=== PATIENT | male | born 1955 | race Two or more races ===

== ENCOUNTER 2024-04-17 20:05 | Inpatient (IN) | payer BC, MEDICAID ==
[~2024-04-17] VITALS: Ht 172.7 cm; Wt 68.9 kg
[2024-04-17 21:51] LABS: BASOPHILS % 0.5 % (0.0-2.0); EOSINOPHILS % 0.5 % (0.0-5.0); HEMATOCRIT. 40.5 % (42.0-52.0); HEMOGLOBIN. 13.7 g/dL (14.0-18.0); LYMPHOCYTES % 24.2 % (20.0-50.0); MEAN CORPUSCULAR HEMOGLOBIN 31.4 pg (28.0-32.0); MEAN CORPUSCULAR HGB CONC 33.8 g/dL (31.0-37.0); MEAN PLATELET VOLUME 7.4 fl (7.4-10.4); MONOCYTES % 6.1 % (2.0-8.0); NEUTROPHILS % 68.7 % (40.0-76.0); PLATELET 309 x1000/uL (130-400); RED BLOOD CELL COUNT 4.35 mill/uL (4.7-6.1); RED CELL DISTRIBUTION WIDTH 15.5 % (11.6-14.6); WHITE BLOOD COUNT 8.2 x1000/uL (4.5-11.0)
[2024-04-17 21:54] LABS: CHLORIDE 109 mEq/L (98-107); POTASSIUM 3.6 mEq/L (3.5-5.1); SODIUM 141 mEq/L (136-145)
[2024-04-17 21:55] LABS: CARBON DIOXIDE 25 mEq/L (21-32)
[2024-04-17 21:56] LABS: CALCIUM 9.6 mg/dL (8.7-10.4)
[2024-04-17 22:00] LABS: GLUCOSE 110 mg/dL (70-105)
[2024-04-17 22:01] LABS: UREA NITROGEN BLOOD 17 mg/dL (9-23)
[2024-04-17 22:24] LABS: TROPONIN I HIGH SENSITIVITY 5576 ng/L (3.0-53)
[2024-04-17] MEDS ORDERED: NITROGLYCERIN 0.4MG TABLET SL SL PRN (22:45)
[2024-04-17] MEDS: MORPHINE SULFATE 4 MG/ML INJ (FOR IV/IM USE) IV STA (22:48)
[2024-04-17] MEDS: ONDANSETRON HCL 4MG/2ML INJ IV STA (22:48)
[2024-04-17] MEDS: ASPIRIN 81MG TABLET PO ONE (22:48)
[2024-04-17] MEDS: HEPARIN 60 UNITS/KG BOLUS IV SCH (23:15)
[2024-04-17] MEDS ORDERED: HEPARIN BOLUS PRN aPTT <30 IV ×2 (23:15→23:18)
[2024-04-17] MEDS ORDERED: HEPARIN BOLUS PRN aPTT 30-44 IV ×2 (23:15→23:18)
[2024-04-17 23:29] LABS: ALANINE AMINOTRANSFERASE 33 IU/L (10-49)
[2024-04-17 23:30] LABS: ALBUMIN 4.6 g/dL (3.2-4.8); ASPARTATE AMINOTRANSFERASE 91 IU/L (<34); BILIRUBIN TOTAL 0.4 mg/dL (0.1-1.0); PROTEIN TOTAL 7.3 g/dL (6.0-8.3)
[2024-04-17] MEDS: HEPARIN 25,000 UNITS PREMIX 250 ML IV ONE (23:37)
[2024-04-17] MEDS: HEPARIN 5000 UNITS/ML VIAL IV ONE (23:37)
[2024-04-17 23:44] LABS: PARTIAL THROMBOPLASTIN TIME 27.8 sec (23.4-31.0); PROTHROMBIN TIME 10.8 sec (9.6-11.0)
[2024-04-17] MEDS: HEPARIN 25,000 UNITS PREMIX 250 ML IV SCH (23:44)
[2024-04-17 23:48] LABS: BILIRUBIN DIRECT < 0.1 mg/dL (<=3.0)
[2024-04-18] MEDS ORDERED: DOCUSATE SODIUM 100MG CAPSULE PO PRN (02:30)
[2024-04-18] MEDS ORDERED: ONDANSETRON HCL 4MG/2ML INJ IV PRN ×2 (02:30→09:00)
[2024-04-18] MEDS ORDERED: ACETAMINOPHEN 325MG TABLET PO PRN (02:30)
[2024-04-18] MEDS ORDERED: CLONIDINE 0.1MG TABLET PO PRN (02:30)
[2024-04-18] MEDS ORDERED: IPRATROPIUM/ALBUTEROL 0.5-3(2.5)MG/3ML NEB HHN PRN (02:30)
[2024-04-18] MEDS ORDERED: HEPARIN 25,000 UNITS PREMIX 250 ML IV SCH (02:30)
[2024-04-18] MEDS ORDERED: GUAIFENESIN 200MG/10ML SUGAR FREE UDC PO PRN (02:30)
[2024-04-18] MEDS ORDERED: NITROGLYCERIN 0.4MG TABLET SL SL PRN (02:30)
[2024-04-18] MEDS ORDERED: MAGNESIUM/ALUMINUM HYDROXIDE/SIMETHICONE 30ML UDC PO PRN (02:30)
[2024-04-18 03:10] LABS: BASOPHILS % 0.8 % (0.0-2.0); EOSINOPHILS % 0.3 % (0.0-5.0); HEMATOCRIT. 41.6 % (42.0-52.0); HEMOGLOBIN. 13.7 g/dL (14.0-18.0); LYMPHOCYTES % 20.8 % (20.0-50.0); MEAN CORPUSCULAR HEMOGLOBIN 30.5 pg (28.0-32.0); MEAN CORPUSCULAR HGB CONC 32.9 g/dL (31.0-37.0); MEAN CORPUSCULAR VOLUME 92.7 fL (80.0-94.0); MEAN PLATELET VOLUME 7.1 fl (7.4-10.4); MONOCYTES % 5.7 % (2.0-8.0); NEUTROPHILS % 72.4 % (40.0-76.0); PLATELET 298 x1000/uL (130-400); RED BLOOD CELL COUNT 4.49 mill/uL (4.7-6.1); RED CELL DISTRIBUTION WIDTH 15.7 % (11.6-14.6); WHITE BLOOD COUNT 12.8 x1000/uL (4.5-11.0)
[2024-04-18 03:18] LABS: CHLORIDE 110 mEq/L (98-107); POTASSIUM 3.5 mEq/L (3.5-5.1)
[2024-04-18 03:19] LABS: CARBON DIOXIDE 23 mEq/L (21-32); SODIUM 140 mEq/L (136-145)
[2024-04-18 03:20] LABS: CALCIUM 9.5 mg/dL (8.7-10.4)
[2024-04-18 03:24] LABS: CREATININE 0.8 mg/dL (0.6-1.3); GLUCOSE 96 mg/dL (70-105)
[2024-04-18 03:25] LABS: LDL CHOLESTEROL 152 mg/dL (5-100); TRIGLYCERIDE 157 mg/dL (0-150); UREA NITROGEN BLOOD 12 mg/dL (9-23)
[2024-04-18 03:26] LABS: ALANINE AMINOTRANSFERASE 40 IU/L (10-49); ALBUMIN 4.6 g/dL (3.2-4.8); ASPARTATE AMINOTRANSFERASE 163 IU/L (<34); CHOLESTEROL 219 mg/dL (<200)
[2024-04-18 03:27] LABS: BILIRUBIN DIRECT 0.1 mg/dL (<=3.0); BILIRUBIN TOTAL 0.5 mg/dL (0.1-1.0); HDL CHOLESTEROL 49 mg/dL (>55); PROTEIN TOTAL 7.2 g/dL (6.0-8.3)
[2024-04-18 03:30] LABS: T4 FREE 1.15 ng/dL (0.89-1.76); THYROID STIMULATING HORMONE 2.45 uIU/mL (0.55-4.78)
[2024-04-18 03:31] LABS: TROPONIN I HIGH SENSITIVITY 19794 ng/L (3.0-53)
[2024-04-18] MEDS: ATORVASTATIN CALCIUM 40MG TABLET PO SCH (04:55)
[2024-04-18 06:49] LABS: TROPONIN I HIGH SENSITIVITY 23479 ng/L (3.0-53)
[2024-04-18] MEDS ORDERED: ASPIRIN 325MG EC TABLET PO NR (07:00)
[2024-04-18] MEDS ORDERED: LIDOCAINE HCL 1% 20ML VIAL ONE (07:18)
[2024-04-18] MEDS ORDERED: IODIXANOL 320MG/ML 100 ML BOTTLE IV ONE ×2 (07:18→08:35)
[2024-04-18] MEDS ORDERED: HEPARIN 1000 UNITS/ML 10ML ONE (07:18)
[2024-04-18] MEDS ORDERED: ASPIRIN/SOD BICARB/CITRIC ACID 324MG TAB EFF ONE (07:51)
[2024-04-18] MEDS ORDERED: FENTANYL CITRATE/PF 50MCG/ML 2ML VIAL ONE (07:59)
[2024-04-18] MEDS ORDERED: MIDAZOLAM HCL 2 MG/2 ML VIAL ONE (08:00)
[2024-04-18] MEDS ORDERED: SODIUM CHLORIDE 0.45% 1,000 ML IV ONE (08:00)
[2024-04-18] MEDS ORDERED: CLOPIDOGREL 75MG TABLET ONE (08:46)
[2024-04-18] MEDS ORDERED: ATROPINE SULFATE 1MG/10ML SYR IV PRN (09:00)
[2024-04-18 10:00] VITALS: BP 107/79; PULSE 72; RESP 18; TEMP 36.50292; O2SAT 100
[2024-04-18] MEDS: SODIUM CHLORIDE 0.45% 1,000 ML IV ONE (10:23)
[2024-04-18] MEDS: PANTOPRAZOLE SODIUM 40 MG/VIAL IV SCH (10:23)
[2024-04-18] MEDS: CLOPIDOGREL 75MG TABLET PO NR (10:23)
[2024-04-18] MEDS: ACETAMINOPHEN 325MG TABLET PO PRN ×2 (10:35→20:04)
[2024-04-18 11:19] VITALS: BP 102/75; PULSE 73; RESP 19; TEMP 36.5292
[2024-04-18 12:00] VITALS: BP 132/98; PULSE 70; RESP 13; O2SAT 100
[2024-04-18 14:22] LABS: TROPONIN I HIGH SENSITIVITY 68114 ng/L (3.0-53)
[2024-04-18 16:00] VITALS: BP 112/63; PULSE 77; RESP 15; TEMP 36.3918; O2SAT 100
[2024-04-18 19:37] VITALS: BP 116/62; PULSE 77; RESP 16; TEMP 37.28076; O2SAT 97
[2024-04-19] VITALS: BP 118/67; PULSE 79; RESP 18; TEMP 37.16964; O2SAT 100
[2024-04-19 04:00] VITALS: BP 98/52; PULSE 87; RESP 17; TEMP 37.00296; O2SAT 99
[2024-04-19 06:01] LABS: *AMPHETAMINES SCREEN URINE NEGATIVE (NEGATIVE); *BARBITURATES SCREEN URINE NEGATIVE (NEGATIVE); *BENZODIAZEPINES SCREEN URINE PRESUMPTIVE POSITIVE (NEGATIVE); *COCAINE SCREEN URINE NEGATIVE (NEGATIVE)
[2024-04-19 06:02] LABS: CANNABINOID URINE SCREEN NEGATIVE (NEGATIVE); ECSTASY MDMA SCREEN URINE NEGATIVE (NEGATIVE); METHADONE URINE SCREEN NEGATIVE (NEGATIVE); OPIATES URINE SCREEN PRESUMPTIVE POSITIVE (NEGATIVE); PHENCYCLIDINE URINE SCREEN NEGATIVE (NEGATIVE)
[2024-04-19 06:44] LABS: CARBON DIOXIDE 24 mEq/L (21-32); CHLORIDE 107 mEq/L (98-107); POTASSIUM 3.7 mEq/L (3.5-5.1); SODIUM 139 mEq/L (136-145)
[2024-04-19 06:45] LABS: CALCIUM 9.3 mg/dL (8.7-10.4)
[2024-04-19 06:49] LABS: BASOPHILS % 0.5 % (0.0-2.0); EOSINOPHILS % 0.6 % (0.0-5.0); HEMATOCRIT. 39.7 % (42.0-52.0); HEMOGLOBIN. 13.5 g/dL (14.0-18.0); MEAN CORPUSCULAR HEMOGLOBIN 31.6 pg (28.0-32.0); MEAN CORPUSCULAR VOLUME 92.9 fL (80.0-94.0); MEAN PLATELET VOLUME 7.4 fl (7.4-10.4); MONOCYTES % 6.9 % (2.0-8.0); PLATELET 288 x1000/uL (130-400); RED BLOOD CELL COUNT 4.27 mill/uL (4.7-6.1); RED CELL DISTRIBUTION WIDTH 15.5 % (11.6-14.6); WHITE BLOOD COUNT 7.7 x1000/uL (4.5-11.0)
[2024-04-19 06:50] LABS: CREATININE 0.8 mg/dL (0.6-1.3); GLUCOSE 99 mg/dL (70-105); UREA NITROGEN BLOOD 13 mg/dL (9-23)
[2024-04-19 08:00] VITALS: BP 115/67; PULSE 75; RESP 24; TEMP 37.05852; O2SAT 99
[2024-04-19 08:07] LABS: TROPONIN I HIGH SENSITIVITY 15418 ng/L (3.0-53)
[2024-04-19] MEDS: ASPIRIN 81MG TABLET PO SCH (08:28)
[2024-04-19] MEDS: CLOPIDOGREL 75MG TABLET PO SCH (08:29)
[2024-04-19] MEDS ORDERED: ASPIRIN 81MG TABLET PO SCH (09:00)
[2024-04-19 12:00] VITALS: BP 100/77; PULSE 74; RESP 22; TEMP 36.9474; O2SAT 96
[2024-04-19] MEDS ORDERED: NALOXONE HCL 0.4MG/ML VIAL IV PRN (13:15)
[2024-04-19 16:00] VITALS: BP 131/66; PULSE 69; RESP 17; TEMP 36.9474; O2SAT 96
[2024-04-19] MEDS: MORPHINE SULFATE 2 MG/ML INJ (NOT FOR IM USE) IV PRN (16:06)
[2024-04-19 20:00] VITALS: BP 135/70; PULSE 83; RESP 21; TEMP 36.89184; O2SAT 98
[2024-04-19] MEDS: ATORVASTATIN CALCIUM 40MG TABLET PO SCH (20:28)
[2024-04-20] VITALS: BP 130/65; PULSE 88; RESP 21; TEMP 36.78072; O2SAT 98
[2024-04-20 04:00] VITALS: BP 128/62; PULSE 85; RESP 20; TEMP 36.9474; O2SAT 98
[2024-04-20 06:43] LABS: BASOPHILS % 0.3 % (0.0-2.0); EOSINOPHILS % 0.7 % (0.0-5.0); HEMATOCRIT. 41.8 % (42.0-52.0); HEMOGLOBIN. 13.7 g/dL (14.0-18.0); LYMPHOCYTES % 25.8 % (20.0-50.0); MEAN CORPUSCULAR HEMOGLOBIN 30.2 pg (28.0-32.0); MEAN CORPUSCULAR HGB CONC 32.9 g/dL (31.0-37.0); MEAN PLATELET VOLUME 7.2 fl (7.4-10.4); MONOCYTES % 8.3 % (2.0-8.0); NEUTROPHILS % 64.9 % (40.0-76.0); PLATELET 331 x1000/uL (130-400); RED BLOOD CELL COUNT 4.54 mill/uL (4.7-6.1); RED CELL DISTRIBUTION WIDTH 15.5 % (11.6-14.6); WHITE BLOOD COUNT 7.5 x1000/uL (4.5-11.0)
[2024-04-20 06:54] LABS: CARBON DIOXIDE 23 mEq/L (21-32); CHLORIDE 108 mEq/L (98-107); POTASSIUM 3.6 mEq/L (3.5-5.1); SODIUM 139 mEq/L (136-145)
[2024-04-20 06:55] LABS: CALCIUM 9.6 mg/dL (8.7-10.4)
[2024-04-20 07:00] LABS: CREATININE 0.9 mg/dL (0.6-1.3); GLUCOSE 99 mg/dL (70-105); UREA NITROGEN BLOOD 15 mg/dL (9-23)
[2024-04-20 08:00] VITALS: BP 135/73; PULSE 71; RESP 18; TEMP 36.72516; O2SAT 98
[2024-04-20 08:40] LABS: TROPONIN I HIGH SENSITIVITY 10330 ng/L (3.0-53)
[2024-04-20 12:00] VITALS: BP 114/65; PULSE 65; RESP 18; TEMP 36.61404; O2SAT 97
[2024-04-20 16:00] VITALS: BP 127/74; PULSE 68; RESP 15; TEMP 36.83628; O2SAT 97
[2024-04-20 20:00] VITALS: BP 120/68; PULSE 74; RESP 18; TEMP 36.55848; O2SAT 96
[2024-04-21] VITALS: BP 92/61; PULSE 61; RESP 20; TEMP 36.6696; O2SAT 96
[2024-04-21 04:00] VITALS: BP 116/53; PULSE 68; RESP 20; TEMP 36.9474; O2SAT 98
[2024-04-21 08:00] VITALS: BP 107/48; PULSE 70; RESP 15; TEMP 36.72516; O2SAT 99
[2024-04-21] MEDS ORDERED: CLOP-31 MT (11:16)
[2024-04-21] MEDS ORDERED: ASPI-1497 PO (11:16)
[2024-04-21] MEDS ORDERED: LIP40 MT (11:16)
[2024-04-21 11:45] VITALS: BP 116/63; PULSE 73; TEMP 98.4; O2SAT 98
[2024-04-21 12:00] VITALS: BP 116/66; PULSE 74; RESP 18; TEMP 36.89184; O2SAT 98
== END 2024-04-21 14:10 | disposition home or self-care (01) | DRG 175 ==
LOC: ER 20:05 → 3WST 04-18 01:45
PROVIDERS: ADMIT Hospitalist; ATTEND Hospitalist
PROC: 027136Z Dilation of Coronary Artery, Two Arteries with Three Drug-eluting Intraluminal Devices, Percutaneous Approach (ICD-10-PCS; principal; 2024-04-18)
PROC: 4A023N7 Measurement of Cardiac Sampling and Pressure, Left Heart, Percutaneous Approach (ICD-10-PCS; 2024-04-18)
PROC: B2111ZZ Fluoroscopy of Multiple Coronary Arteries using Low Osmolar Contrast (ICD-10-PCS; 2024-04-18)
PROC: B2151ZZ Fluoroscopy of Left Heart using Low Osmolar Contrast (ICD-10-PCS; 2024-04-18)
DX: I25.10 Atherosclerotic heart disease of native coronary artery without angina pectoris (principal); I21.A1 Myocardial infarction type 2; D72.829 Elevated white blood cell count, unspecified; E78.5 Hyperlipidemia, unspecified; D64.9 Anemia, unspecified; E78.1 Pure hyperglyceridemia; Z59.01 Sheltered homelessness; Z79.02 Long term (current) use of antithrombotics/antiplatelets; Z79.82 Long term (current) use of aspirin; Z79.899 Other long term (current) drug therapy; Z82.49 Family history of ischemic heart disease and other diseases of the circulatory system
CPT/HCPCS: 36415; 71045; 80048; 80061; 80076; 80305; 80320; 82962; 83880; 84439; 84443; 84484; 85025; 85347; 86850; 86900; 92928; 93005; 93306; 93458; 99291; C1769; C1874; C1887; C1893; J1644; J2250; J2270; J2405; J2470; J3010; J3490; Q9967; G0480

== ENCOUNTER 2024-04-26 09:39 | Emergency (ER) | payer BC ==
[~2024-04-26] VITALS: Ht 167.6 cm; Wt 75.0 kg
[~2024-04-26 09:39] MED LIST: ASPI-1497 PO; CLOP-31 MT; LIP40 MT
[2024-04-26 10:12] VITALS: O2SAT 99
[2024-04-26 10:13] VITALS: TEMP 98.9; O2SAT 100
[2024-04-26] MEDS ORDERED: IBUP-2029 PO (10:40)
[2024-04-26 10:44] VITALS: BP 122/52; PULSE 72; RESP 18
[2024-04-26] MEDS: KETOROLAC 30MG/ML VIAL IM ONE (10:44)
== END 2024-04-26 12:01 | disposition home or self-care (01) ==
LOC: ER 09:39
DX: M54.50 Low back pain, unspecified (principal); I10 Essential (primary) hypertension; Z79.899 Other long term (current) drug therapy
CPT/HCPCS: 99283; 96372; J1885

== ENCOUNTER 2024-07-12 11:05 | Emergency (ER) | payer MEDICAID ==
[~2024-07-12] VITALS: Ht 170.2 cm; Wt 73.0 kg
[~2024-07-12 11:05] MED LIST changes: +AMLO5TAB88 MT; +ASPI-1497 MT; +LEVO-65 MT
[2024-07-12 11:12] VITALS: O2SAT 98
[2024-07-12] MEDS ORDERED: IBUP-2029 MT (12:00)
[2024-07-12] MEDS ORDERED: FAMO-135 MT (12:00)
[2024-07-12] MEDS: KETOROLAC 15MG/ML VIAL IM ONE (12:17)
[2024-07-12] MEDS: FAMOTIDINE 20MG TABLET PO ONE (12:17)
[2024-07-12 12:19] VITALS: BP 114/66; PULSE 64; RESP 18; TEMP 36.8; O2SAT 98
== END 2024-07-12 12:25 | disposition home or self-care (01) ==
LOC: ER 11:05
DX: K29.70 Gastritis, unspecified, without bleeding (principal); M54.50 Low back pain, unspecified; I10 Essential (primary) hypertension; I25.2 Old myocardial infarction; Z88.0 Allergy status to penicillin; Z79.899 Other long term (current) drug therapy
CPT/HCPCS: 99283; 96372; J1885

== ENCOUNTER 2024-07-19 17:39 | Emergency (ER) | payer MEDICAID ==
[~2024-07-19] VITALS: Ht 172.7 cm; Wt 85.0 kg
[~2024-07-19 17:39] MED LIST changes: +FAMO-135 MT; +IBUP-2029 MT
[2024-07-19 17:43] VITALS: TEMP 36.7; O2SAT 98
[2024-07-19] MEDS ORDERED: MORPHINE SULFATE 4 MG/ML INJ (FOR IV/IM USE) IV STA (19:37)
[2024-07-19] MEDS ORDERED: ONDANSETRON HCL 4MG/2ML INJ IV STA (19:37)
[2024-07-19 21:38] LABS: CLARITY URINE CLEAR (CLEAR); COLOR URINE YELLOW (YELLOW); GLUCOSE URINE NEGATIVE (NEGATIVE); KETONES URINE NEGATIVE (NEGATIVE); LEUKOCYTE ESTERASE URINE NEGATIVE (NEGATIVE); NITRITE URINE NEGATIVE (NEGATIVE); OCCULT BLOOD URINE NEGATIVE (NEGATIVE); PROTEIN URINE NEGATIVE (NEGATIVE); SPECIFIC GRAVITY URINE 1.025 (1.005-1.030); UROBILINOGEN URINE 0.2 E.U./dL (0.2-1.0)
[2024-07-19 21:50] LABS: BASOPHILS % 0.8 % (0.0-2.0); EOSINOPHILS % 1.3 % (0.0-5.0); HEMATOCRIT. 39.9 % (42.0-52.0); HEMOGLOBIN. 13.2 g/dL (14.0-18.0); LYMPHOCYTES % 18.9 % (20.0-50.0); MEAN CORPUSCULAR HEMOGLOBIN 31.3 pg (28.0-32.0); MEAN CORPUSCULAR HGB CONC 33.1 g/dL (31.0-37.0); MEAN CORPUSCULAR VOLUME 94.5 fL (80.0-94.0); MEAN PLATELET VOLUME 8.1 fl (7.4-10.4); MONOCYTES % 5.5 % (2.0-8.0); NEUTROPHILS % 73.5 % (40.0-76.0); PLATELET 246 x1000/uL (130-400); RED BLOOD CELL COUNT 4.22 mill/uL (4.7-6.1); RED CELL DISTRIBUTION WIDTH 19.4 % (11.6-14.6); WHITE BLOOD COUNT 7.6 x1000/uL (4.5-11.0)
[2024-07-19 21:56] LABS: CHLORIDE 111 mEq/L (98-107); POTASSIUM 3.8 mEq/L (3.5-5.1); SODIUM 140 mEq/L (136-145)
[2024-07-19 21:58] LABS: CARBON DIOXIDE 20 mEq/L (21-32)
[2024-07-19 21:59] LABS: CALCIUM 9.2 mg/dL (8.7-10.4)
[2024-07-19 22:03] LABS: CREATININE 0.9 mg/dL (0.6-1.3); GLUCOSE 93 mg/dL (70-105)
[2024-07-19 22:04] LABS: UREA NITROGEN BLOOD 14 mg/dL (9-23)
[2024-07-19 22:05] LABS: ALANINE AMINOTRANSFERASE 35 IU/L (10-49); ALBUMIN 4.1 g/dL (3.2-4.8); ASPARTATE AMINOTRANSFERASE 34 IU/L (<34); INR 0.9; PROTHROMBIN TIME 10.2 sec (9.6-11.0)
[2024-07-19 22:06] LABS: BILIRUBIN DIRECT 0.1 mg/dL (<=3.0); BILIRUBIN TOTAL 0.4 mg/dL (0.1-1.0); PROTEIN TOTAL 6.8 g/dL (6.0-8.3)
[2024-07-19] MEDS: SODIUM CHLORIDE 0.9% 1,000 ML IV ONE (22:24)
[2024-07-19 22:25] VITALS: BP 146/88; PULSE 72; RESP 16
[2024-07-19] MEDS: ONDANSETRON HCL 4MG/2ML INJ IV NR (22:25)
[2024-07-19] MEDS: MORPHINE SULFATE 4 MG/ML INJ (FOR IV/IM USE) IV NR (22:25)
[2024-07-20] MEDS ORDERED: IBUP-2028 MT (00:23)
== END 2024-07-20 01:59 | disposition home or self-care (01) ==
LOC: ER 17:39
DX: M79.602 Pain in left arm (principal); M79.632 Pain in left forearm; M25.562 Pain in left knee; M25.552 Pain in left hip; M54.50 Low back pain, unspecified; R55 Syncope and collapse; E11.9 Type 2 diabetes mellitus without complications; I10 Essential (primary) hypertension; I25.2 Old myocardial infarction; Z86.73 Personal history of transient ischemic attack (TIA), and cerebral infarction without residual deficits; Z79.82 Long term (current) use of aspirin; Z79.899 Other long term (current) drug therapy; Z88.0 Allergy status to penicillin; V19.9XXA Pedal cyclist (driver) (passenger) injured in unspecified traffic accident, initial encounter; Y93.89 Activity, other specified; Y92.89 Other specified places as the place of occurrence of the external cause; Y99.8 Other external cause status
CPT/HCPCS: 80076; 80048; 81003; 83690; 85025; 85610; 85730; 36415; 73552; 71045; 73030; 73060; 73080; 73090; 73110; 73130; 73560; 70450; 72128; 72131; 74177; 96374; 96375; 99285; 73610; Q9967; J2405; J2270; J7030; Z7610

== ENCOUNTER 2024-08-05 13:49 | Emergency (ER) | payer MEDICAID ==
[~2024-08-05] VITALS: Ht 170.2 cm; Wt 63.5 kg
[~2024-08-05 13:49] MED LIST changes: +IBUP-2028 MT
[2024-08-05 14:09] VITALS: TEMP 36.9; O2SAT 97
[2024-08-05 14:37] LABS: BASOPHILS % 0.6 % (0.0-2.0); EOSINOPHILS % 0.5 % (0.0-5.0); HEMATOCRIT. 39.2 % (42.0-52.0); LYMPHOCYTES % 17.2 % (20.0-50.0); MEAN CORPUSCULAR HEMOGLOBIN 30.4 pg (28.0-32.0); MEAN CORPUSCULAR HGB CONC 33.1 g/dL (31.0-37.0); MEAN CORPUSCULAR VOLUME 91.8 fL (80.0-94.0); MEAN PLATELET VOLUME 7.2 fl (7.4-10.4); MONOCYTES % 5.1 % (2.0-8.0); NEUTROPHILS % 76.6 % (40.0-76.0); PLATELET 304 x1000/uL (130-400); RED BLOOD CELL COUNT 4.27 mill/uL (4.7-6.1); RED CELL DISTRIBUTION WIDTH 18.3 % (11.6-14.6); WHITE BLOOD COUNT 7.6 x1000/uL (4.5-11.0)
[2024-08-05 14:43] VITALS: BP 126/61; PULSE 68; RESP 16
[2024-08-05] MEDS: KETOROLAC 30MG/ML VIAL IM STA (14:43)
[2024-08-05] MEDS: ACETAMINOPHEN 325MG TABLET PO STA (14:43)
[2024-08-05 14:45] LABS: CHLORIDE 111 mEq/L (98-107); POTASSIUM 3.5 mEq/L (3.5-5.1); SODIUM 143 mEq/L (136-145)
[2024-08-05 14:46] LABS: CARBON DIOXIDE 23 mEq/L (21-32)
[2024-08-05 14:47] LABS: CALCIUM 9.4 mg/dL (8.7-10.4)
[2024-08-05 14:51] LABS: CREATININE 1.1 mg/dL (0.6-1.3); GLUCOSE 129 mg/dL (70-105); UREA NITROGEN BLOOD 21 mg/dL (9-23)
[2024-08-05 14:53] LABS: TROPONIN I HIGH SENSITIVITY 12 ng/L (3.0-53)
[2024-08-05] MEDS ORDERED: NAPR-681 MT (15:29)
[2024-08-06] MEDS ORDERED: FAMO-135 MT (19:44)
== END 2024-08-05 15:47 | disposition home or self-care (01) ==
LOC: ER 13:49
DX: B34.9 Viral infection, unspecified (principal); I10 Essential (primary) hypertension; I25.2 Old myocardial infarction; Z79.1 Long term (current) use of non-steroidal anti-inflammatories (NSAID); Z90.49 Acquired absence of other specified parts of digestive tract; Z79.899 Other long term (current) drug therapy; Z79.82 Long term (current) use of aspirin; Z79.02 Long term (current) use of antithrombotics/antiplatelets; Z88.0 Allergy status to penicillin
CPT/HCPCS: 99285; 71045; 80048; 83880; 85025; 84484; 36415; 93005; 96372; J1885

== ENCOUNTER 2024-08-06 16:41 | Emergency (ER) | payer MEDICAID ==
[~2024-08-06] VITALS: Ht 172.7 cm; Wt 68.0 kg
[~2024-08-06 16:41] MED LIST changes: +NAPR-681 MT
[2024-08-06 16:43] VITALS: BP 143/65; PULSE 69; RESP 16; TEMP 37.3; O2SAT 98
[2024-08-06 19:04] LABS: BASOPHILS % 1.3 % (0.0-2.0); EOSINOPHILS % 0.4 % (0.0-5.0); HEMATOCRIT. 37.6 % (42.0-52.0); MEAN CORPUSCULAR HEMOGLOBIN 32.1 pg (28.0-32.0); MEAN CORPUSCULAR HGB CONC 34.6 g/dL (31.0-37.0); MEAN CORPUSCULAR VOLUME 92.8 fL (80.0-94.0); MEAN PLATELET VOLUME 7.1 fl (7.4-10.4); NEUTROPHILS % 71.3 % (40.0-76.0); PLATELET 297 x1000/uL (130-400); RED BLOOD CELL COUNT 4.06 mill/uL (4.7-6.1); RED CELL DISTRIBUTION WIDTH 18.8 % (11.6-14.6); WHITE BLOOD COUNT 6.2 x1000/uL (4.5-11.0)
[2024-08-06 19:14] LABS: INR 0.9; PROTHROMBIN TIME 10.1 sec (9.6-11.0)
[2024-08-06 19:20] LABS: CARBON DIOXIDE 23 mEq/L (21-32); CHLORIDE 111 mEq/L (98-107); POTASSIUM 3.7 mEq/L (3.5-5.1); SODIUM 142 mEq/L (136-145)
[2024-08-06 19:21] LABS: CALCIUM 9.2 mg/dL (8.7-10.4)
[2024-08-06 19:26] LABS: CREATININE 0.8 mg/dL (0.6-1.3); GLUCOSE 117 mg/dL (70-105); UREA NITROGEN BLOOD 18 mg/dL (9-23)
[2024-08-06 19:28] LABS: ALANINE AMINOTRANSFERASE 31 IU/L (10-49); ALBUMIN 4.2 g/dL (3.2-4.8); ASPARTATE AMINOTRANSFERASE 26 IU/L (<34); BILIRUBIN TOTAL 0.3 mg/dL (0.1-1.0); PROTEIN TOTAL 6.5 g/dL (6.0-8.3); TROPONIN I HIGH SENSITIVITY 12 ng/L (3.0-53)
[2024-08-06 19:35] LABS: BILIRUBIN DIRECT < 0.1 mg/dL (<=3.0)
[2024-08-06] MEDS ORDERED: FAMO-135 MT (19:44)
[2024-08-06] MEDS: ACETAMINOPHEN 500MG TABLET PO ONE (19:45)
== END 2024-08-06 20:44 | disposition home or self-care (01) ==
LOC: ER 16:41 → EDBEDREQ 17:35 → ER 20:44
DX: R53.1 Weakness (principal); D64.9 Anemia, unspecified; M79.10 Myalgia, unspecified site; I10 Essential (primary) hypertension; I25.2 Old myocardial infarction; Z79.02 Long term (current) use of antithrombotics/antiplatelets; Z79.1 Long term (current) use of non-steroidal anti-inflammatories (NSAID); Z79.82 Long term (current) use of aspirin; Z79.899 Other long term (current) drug therapy; Z90.49 Acquired absence of other specified parts of digestive tract; Z88.0 Allergy status to penicillin
CPT/HCPCS: 36415; 71045; 80048; 80076; 84484; 85025; 86850; 86900; 99284

== ENCOUNTER 2024-08-29 19:31 | Emergency (ER) | payer SELFPAY ==
[~2024-08-29] VITALS: Ht 177.8 cm; Wt 92.0 kg
[2024-08-29 19:55] VITALS: TEMP 37.1; O2SAT 100
[2024-08-29] MEDS: HYDROCODONE/ACETAMINOPHEN 5/325MG TABLET PO ONE (22:30)
[2024-08-30 00:30] VITALS: BP 169/75; PULSE 71; RESP 18
[2024-08-30 00:30] LABS: BASOPHILS % 0.8 % (0.0-2.0); EOSINOPHILS % 1.1 % (0.0-5.0); HEMATOCRIT. 39.4 % (42.0-52.0); HEMOGLOBIN. 13.4 g/dL (14.0-18.0); LYMPHOCYTES % 23.9 % (20.0-50.0); MEAN CORPUSCULAR HEMOGLOBIN 32.2 pg (28.0-32.0); MEAN CORPUSCULAR HGB CONC 33.9 g/dL (31.0-37.0); MEAN CORPUSCULAR VOLUME 94.8 fL (80.0-94.0); MEAN PLATELET VOLUME 7.2 fl (7.4-10.4); MONOCYTES % 6.1 % (2.0-8.0); NEUTROPHILS % 68.1 % (40.0-76.0); PLATELET 276 x1000/uL (130-400); RED BLOOD CELL COUNT 4.16 mill/uL (4.7-6.1); RED CELL DISTRIBUTION WIDTH 17.7 % (11.6-14.6); WHITE BLOOD COUNT 6.5 x1000/uL (4.5-11.0)
[2024-08-30] MEDS: HYDROCODONE/ACETAMINOPHEN 5/325MG TABLET PO NR (00:30)
[2024-08-30 00:44] LABS: CARBON DIOXIDE 21 mEq/L (21-32); CHLORIDE 109 mEq/L (98-107); SODIUM 140 mEq/L (136-145)
[2024-08-30 00:50] LABS: GLUCOSE 103 mg/dL (70-105); UREA NITROGEN BLOOD 23 mg/dL (9-23)
[2024-08-30 00:51] LABS: ALANINE AMINOTRANSFERASE 41 IU/L (10-49); ASPARTATE AMINOTRANSFERASE 28 IU/L (<34)
[2024-08-30 00:52] LABS: BILIRUBIN TOTAL 0.3 mg/dL (0.1-1.0); PROTEIN TOTAL 6.6 g/dL (6.0-8.3)
[2024-08-30 01:19] LABS: CLARITY URINE CLEAR (CLEAR); COLOR URINE YELLOW (YELLOW); GLUCOSE URINE 3+ (NEGATIVE); KETONES URINE TRACE (NEGATIVE); LEUKOCYTE ESTERASE URINE NEGATIVE (NEGATIVE); NITRITE URINE NEGATIVE (NEGATIVE); OCCULT BLOOD URINE NEGATIVE (NEGATIVE); PROTEIN URINE NEGATIVE (NEGATIVE); SPECIFIC GRAVITY URINE 1.031 (1.005-1.030); UROBILINOGEN URINE 0.2 E.U./dL (0.2-1.0)
[2024-08-30 02:13] LABS: BACTERIA URINE NONE SEEN; RBC URINE NONE SEEN /hpf (0-2); SQUAMOUS EPITHELIAL CELL URINE NONE SEEN /lpf (RARE/1+); WBC URINE 0-2 /hpf (0-2)
== END 2024-08-30 03:13 | disposition home or self-care (01) ==
LOC: ER 19:54
DX: G89.29 Other chronic pain (principal); M54.50 Low back pain, unspecified; E78.00 Pure hypercholesterolemia, unspecified; I10 Essential (primary) hypertension; Z90.49 Acquired absence of other specified parts of digestive tract; Z79.899 Other long term (current) drug therapy; Z88.0 Allergy status to penicillin; Z79.1 Long term (current) use of non-steroidal anti-inflammatories (NSAID); Z79.82 Long term (current) use of aspirin
CPT/HCPCS: 36415; 74176; 80053; 81003; 85025; 99284